=== PATIENT | male | born 1960 | race Caucasian/White ===

== ENCOUNTER 2022-04-20 06:59 | Inpatient (IN) | payer BC, SELFPAY ==
[2022-04-20 07:34] LABS: Hemoglobin 17.5 g/dL (14.0-18.0); Mean Corpuscular HGB CONC 33.8 g/dL (32.0-36.0); Mean Corpuscular Hemoglobin 32.4 pg (27.0-31.0); Mean Corpuscular Volume 95.7 fl (78.0-98.0); Mean Platelet Volume 9.2 fL (7.4-10.4); Platelet Count 214 10x3/uL (130-400); White Blood Cell (WBC) Count 28.6 10x3/uL (4.8-10.8)
[2022-04-20 07:51] LABS: ALT (SGPT) 46 U/L (8-55); AST (SGOT) 31 U/L (5-34); Albumin 3.9 g/dL (3.4-4.8); Alkaline Phosphatase 137 U/L (40-110); Anion Gap 18 mmol/L (10-20); BUN (Urea Nitrogen) 18 mg/dL (8.4-25.7); Bilirubin, Total 1.4 mg/dL (0.2-1.2); Calc. Creatinine Clearance 0 mL/min (70-130); Calcium 10.5 mg/dL (7.8-10.44); Carbon Dioxide 23 mmol/L (23-31); Chloride 99 mmol/L (98-107); Estimated GFR 51; Globulin 4.2 g/dL (2.4-3.5); Glucose 164 mg/dL (80-115); Potassium 4.4 mmol/L (3.5-5.1); Protein, Total 8.1 g/dL (5.8-8.1); Sodium 136 mmol/L (136-145)
[2022-04-20 08:06] LABS: Band 13 % (5-11); Lymphocytes 1 % (21-51); MDiff Complete? YES; Monocytes 4 % (0-10); Neutrophil 80 % (42-75); RBC Morphology Normal; Reactive Lymphocytes 2 % (0-10)
[2022-04-20] MEDS ORDERED: Pantoprazole 40 MG VIAL ONE (08:25)
[2022-04-20 08:41] LABS: INR-International Normal Ratio 1.4
[2022-04-20 08:42] LABS: Bacteria/HPF 4+ HPF (None Seen); Bilirubin Negative (Negative); Blood, Urine 3+ (Negative); Clarity Extra Turbid (Clear); Glucose, Urine (Dipstick) Normal (Negative); Ketone, Urine Trace mg/dL (Negative); Leukocyte 500 Leu/uL (Negative); Nitrite Negative (Negative); Protein, Urine (Dipstick) 50 mg/dL (Neg-Trace); RBC/HPF Greater than 50 HPF (0-3); Specific Gravity, Urine 1.016 (1.002-1.036); Squamous Epithelial 0-3 HPF (0-3); Urobilinogen Normal mg/dL (Less than 2)
[2022-04-20 08:45] LABS: WBC/HPF 21-50 HPF (0-3)
[2022-04-20] MEDS ORDERED: cefTRIAXone\\ROCEPHIN 2 GM VIAL ONE (09:03)
[2022-04-20] MEDS ORDERED: Ondansetron PF 4 MG/2 ML Vial ONE (09:03)
[2022-04-20] MEDS ORDERED: Acetaminophen 325 MG TAB PO PRN (12:05)
[2022-04-20 12:31] LABS: Lactic Acid 2.9 mmol/L (0.5-2.2)
[2022-04-20 14:42] LABS: SARS-CoV-2 NAA Rapid Test Not Detected (NotDetected)
[2022-04-20] MEDS ORDERED: Ondansetron ODT 4 MG TAB PO PRN (15:00)
[2022-04-20] MEDS ORDERED: Ondansetron PF 4 MG/2 ML Vial IVP PRN (15:00)
[2022-04-20] MEDS ORDERED: Iopamidol-370 76% 500 ML 1 ML ONE (15:02)
[2022-04-20] MEDS: Sodium Chloride 0.9% 1,000 ML IV SCH (16:36)
[2022-04-20] MEDS: Atorvastatin Calcium 20 MG TAB PO SCH (21:20)
[2022-04-20] MEDS: Mometasone 100 MCG/PUFF (1 INHALER) INH SCH (22:21)
[2022-04-21 04:29] LABS: #Lymphocytes 1.7 thou/uL (1.20-3.40); #Monocytes 1.6 thou/uL (0.11-0.59); %Basophils 0.1 % (0.0-1.0); %Eosinophils 0.2 % (0.0-10.0); %Lymphocytes 8.2 % (21.0-51.0); %Monocytes 8.1 % (0.0-10.0); %Neutrophils 83.5 % (42.0-75.0); Hemoglobin 15.5 g/dL (14.0-18.0); Mean Corpuscular HGB CONC 32.9 g/dL (32.0-36.0); Mean Corpuscular Hemoglobin 32.8 pg (27.0-31.0); Mean Corpuscular Volume 99.4 fl (78.0-98.0); Mean Platelet Volume 10.2 fL (7.4-10.4); Platelet Count 170 10x3/uL (130-400); RBC Distribution Width 12.2 % (11.5-14.5); Red Blood Cell (RBC) Count 4.74 mill/uL (4.70-6.10); White Blood Cell (WBC) Count 20.4 10x3/uL (4.8-10.8)
[2022-04-21 04:53] LABS: Anion Gap 14 mmol/L (10-20); BUN (Urea Nitrogen) 28 mg/dL (8.4-25.7); Calc. Creatinine Clearance 42 mL/min (70-130); Calcium 9.8 mg/dL (7.8-10.44); Carbon Dioxide 24 mmol/L (23-31); Chloride 105 mmol/L (98-107); Estimated GFR 43; Glucose 108 mg/dL (80-115); Potassium 4.1 mmol/L (3.5-5.1); Sodium 139 mmol/L (136-145)
[2022-04-21] MEDS: Mometasone 100 MCG/PUFF (1 INHALER) INH SCH ×2 (07:30→18:28)
[2022-04-21] MEDS ORDERED: Digoxin 0.5 MG/2 ML AMP SLOW IVP SCH (08:30)
[2022-04-21] MEDS ORDERED: Sodium Chloride 0.9% 500 ML IV SCH (08:30)
[2022-04-21] MEDS: Sodium Chloride 0.9% 1,000 ML IV SCH ×4 (08:38→23:42)
[2022-04-21] MEDS: cefTRIAXone\\ROCEPHIN 1 GM in Sodium Chloride 0.9% 100 ML IVPB SCH (08:39)
[2022-04-21] MEDS ORDERED: Melatonin 3 MG TAB PO PRN (08:45)
[2022-04-21] MEDS ORDERED: Senokot 8.6 MG TAB PO PRN (08:46)
[2022-04-21] MEDS ORDERED: traZODone HCl 150 MG TAB PO SCH (09:00)
[2022-04-21] MEDS: hydrOXYzine Pamoate 25 mg Capsule PO SCH (09:31)
[2022-04-21] MEDS: Metoprolol Tartrate 25 MG TAB PO SCH (09:31)
[2022-04-21] MEDS ORDERED: Sodium Chloride 0.9% 500 ML IVPB SCH (11:00)
[2022-04-21] MEDS: Apixaban 5 MG TAB PO SCH ×2 (15:12→21:15)
[2022-04-21] MEDS: Atorvastatin Calcium 20 MG TAB PO SCH (21:15)
[2022-04-22 04:22] LABS: #Eosinphils 0.2 thou/uL (0.0-0.7); #Lymphocytes 1.8 thou/uL (1.20-3.40); #Monocytes 0.8 thou/uL (0.11-0.59); #Neutrophils 7.3 thou/uL (1.40-6.50); %Basophils 0.1 % (0.0-1.0); %Lymphocytes 18.1 % (21.0-51.0); %Monocytes 8.1 % (0.0-10.0); %Neutrophils 71.8 % (42.0-75.0); Hemoglobin 13.1 g/dL (14.0-18.0); Mean Corpuscular HGB CONC 33.5 g/dL (32.0-36.0); Mean Corpuscular Hemoglobin 33.3 pg (27.0-31.0); Mean Corpuscular Volume 99.3 fl (78.0-98.0); Mean Platelet Volume 9.3 fL (7.4-10.4); Platelet Count 172 10x3/uL (130-400); RBC Distribution Width 11.9 % (11.5-14.5); Red Blood Cell (RBC) Count 3.94 mill/uL (4.70-6.10); White Blood Cell (WBC) Count 10.1 10x3/uL (4.8-10.8)
[2022-04-22 04:58] LABS: ALT (SGPT) 46 U/L (8-55); AST (SGOT) 40 U/L (5-34); Albumin 2.5 g/dL (3.4-4.8); Alkaline Phosphatase 102 U/L (40-110); Anion Gap 12 mmol/L (10-20); BUN (Urea Nitrogen) 23 mg/dL (8.4-25.7); Bilirubin, Total 0.8 mg/dL (0.2-1.2); Calc. Creatinine Clearance 72 mL/min (70-130); Calcium 8.8 mg/dL (7.8-10.44); Carbon Dioxide 23 mmol/L (23-31); Chloride 110 mmol/L (98-107); Estimated GFR 82; Globulin 3.1 g/dL (2.4-3.5); Glucose 87 mg/dL (80-115); Magnesium 1.8 mg/dL (1.6-2.6); Potassium 3.5 mmol/L (3.5-5.1); Protein, Total 5.6 g/dL (5.8-8.1); Sodium 141 mmol/L (136-145)
[2022-04-22] MEDS: Mometasone 100 MCG/PUFF (1 INHALER) INH SCH ×2 (07:00→18:32)
[2022-04-22] MEDS: Apixaban 5 MG TAB PO SCH ×2 (09:14→21:33)
[2022-04-22] MEDS: hydrOXYzine Pamoate 25 mg Capsule PO SCH (09:14)
[2022-04-22] MEDS: Metoprolol Tartrate 25 MG TAB PO SCH (09:14)
[2022-04-22] MEDS: cefTRIAXone\\ROCEPHIN 1 GM in Sodium Chloride 0.9% 100 ML IVPB SCH (09:14)
[2022-04-22] MEDS: Atorvastatin Calcium 20 MG TAB PO SCH (21:32)
[2022-04-22] MEDS: traZODone HCl 150 MG TAB PO SCH (21:33)
[2022-04-23] MEDS ORDERED: Electrolyte Replacement Protocol 1 EACH FS SCH (04:15)
[2022-04-23 05:01] LABS: #Eosinphils 0.3 thou/uL (0.0-0.7); #Lymphocytes 1.9 thou/uL (1.20-3.40); #Monocytes 0.8 thou/uL (0.11-0.59); #Neutrophils 4.7 thou/uL (1.40-6.50); %Basophils 0.6 % (0.0-1.0); %Eosinophils 3.7 % (0.0-10.0); %Lymphocytes 24.4 % (21.0-51.0); %Monocytes 10.5 % (0.0-10.0); %Neutrophils 60.8 % (42.0-75.0); Hemoglobin 12.6 g/dL (14.0-18.0); Mean Corpuscular HGB CONC 34.8 g/dL (32.0-36.0); Mean Corpuscular Hemoglobin 34.3 pg (27.0-31.0); Mean Corpuscular Volume 98.7 fl (78.0-98.0); Mean Platelet Volume 8.8 fL (7.4-10.4); Platelet Count 176 10x3/uL (130-400); RBC Distribution Width 11.7 % (11.5-14.5); Red Blood Cell (RBC) Count 3.66 mill/uL (4.70-6.10); White Blood Cell (WBC) Count 7.7 10x3/uL (4.8-10.8)
[2022-04-23 05:19] LABS: Anion Gap 13 mmol/L (10-20); BUN (Urea Nitrogen) 17 mg/dL (8.4-25.7); Calc. Creatinine Clearance 87 mL/min (70-130); Calcium 8.8 mg/dL (7.8-10.44); Carbon Dioxide 22 mmol/L (23-31); Chloride 106 mmol/L (98-107); Estimated GFR 97; Glucose 83 mg/dL (80-115); Magnesium 1.6 mg/dL (1.6-2.6); Potassium 3.5 mmol/L (3.5-5.1); Sodium 137 mmol/L (136-145)
[2022-04-23] MEDS: Mometasone 100 MCG/PUFF (1 INHALER) INH SCH ×2 (06:44→18:53)
[2022-04-23] MEDS ORDERED: Potassium Chloride 20 MEQ TAB PO SCH (08:00)
[2022-04-23] MEDS ORDERED: Magnesium 2 GM/50 ML(in water) 2 GM in Premix Bag 1 BAG IVPB SCH (08:00)
[2022-04-23] MEDS: Apixaban 5 MG TAB PO SCH ×2 (08:08→20:50)
[2022-04-23] MEDS: hydrOXYzine Pamoate 25 mg Capsule PO SCH (08:09)
[2022-04-23] MEDS: cefTRIAXone\\ROCEPHIN 1 GM in Sodium Chloride 0.9% 100 ML IVPB SCH (08:09)
[2022-04-23] MEDS: Metoprolol Tartrate 25 MG TAB PO SCH (08:10)
[2022-04-23] MEDS: Atorvastatin Calcium 20 MG TAB PO SCH (20:49)
[2022-04-23] MEDS: traZODone HCl 150 MG TAB PO SCH (20:50)
[2022-04-24 04:31] LABS: #Eosinphils 0.3 thou/uL (0.0-0.7); #Lymphocytes 1.7 thou/uL (1.20-3.40); #Monocytes 0.8 thou/uL (0.11-0.59); #Neutrophils 4.8 thou/uL (1.40-6.50); %Lymphocytes 22.7 % (21.0-51.0); %Monocytes 10.4 % (0.0-10.0); %Neutrophils 62.9 % (42.0-75.0); Hemoglobin 13.7 g/dL (14.0-18.0); Mean Corpuscular HGB CONC 33.6 g/dL (32.0-36.0); Mean Corpuscular Hemoglobin 32.6 pg (27.0-31.0); Mean Corpuscular Volume 96.8 fl (78.0-98.0); Mean Platelet Volume 8.6 fL (7.4-10.4); Platelet Count 191 10x3/uL (130-400); RBC Distribution Width 11.8 % (11.5-14.5); White Blood Cell (WBC) Count 7.6 10x3/uL (4.8-10.8)
[2022-04-24 04:51] LABS: Anion Gap 12 mmol/L (10-20); BUN (Urea Nitrogen) 13 mg/dL (8.4-25.7); Calc. Creatinine Clearance 90 mL/min (70-130); Calcium 8.7 mg/dL (7.8-10.44); Carbon Dioxide 24 mmol/L (23-31); Chloride 105 mmol/L (98-107); Estimated GFR 98; Glucose 86 mg/dL (80-115); Magnesium 1.7 mg/dL (1.6-2.6); Potassium 3.9 mmol/L (3.5-5.1); Sodium 137 mmol/L (136-145)
[2022-04-24] MEDS: Mometasone 100 MCG/PUFF (1 INHALER) INH SCH ×2 (07:15→18:54)
[2022-04-24] MEDS: Metoprolol Tartrate 25 MG TAB PO SCH (09:12)
[2022-04-24] MEDS: hydrOXYzine Pamoate 25 mg Capsule PO SCH (09:12)
[2022-04-24] MEDS: cefTRIAXone\\ROCEPHIN 1 GM in Sodium Chloride 0.9% 100 ML IVPB SCH (09:12)
[2022-04-24] MEDS: Apixaban 5 MG TAB PO SCH ×2 (09:12→20:09)
[2022-04-24] MEDS ORDERED: Magnesium Oxide 400 MG TAB PO SCH (14:30)
[2022-04-24] MEDS ORDERED: Tamsulosin HCl 0.4 MG CAP PO SCH (14:30)
[2022-04-24] MEDS ORDERED: Finasteride 5 MG TAB PO SCH (14:45)
[2022-04-24] MEDS: Atorvastatin Calcium 20 MG TAB PO SCH (20:09)
[2022-04-24] MEDS: traZODone HCl 150 MG TAB PO SCH (20:10)
[2022-04-25] MEDS: Mometasone 100 MCG/PUFF (1 INHALER) INH SCH ×2 (08:00→19:08)
[2022-04-25] MEDS: hydrOXYzine Pamoate 25 mg Capsule PO SCH (09:17)
[2022-04-25] MEDS: Apixaban 5 MG TAB PO SCH ×2 (09:17→22:14)
[2022-04-25] MEDS: Metoprolol Tartrate 25 MG TAB PO SCH (09:17)
[2022-04-25] MEDS: Finasteride 5 MG TAB PO SCH (09:18)
[2022-04-25] MEDS: cefTRIAXone\\ROCEPHIN 1 GM in Sodium Chloride 0.9% 100 ML IVPB SCH (09:19)
[2022-04-25] MEDS ORDERED: Tamsulosin HCl 0.4 MG CAP PO SCH (21:00)
[2022-04-25] MEDS: Atorvastatin Calcium 20 MG TAB PO SCH (22:14)
[2022-04-25] MEDS: traZODone HCl 150 MG TAB PO SCH (22:15)
[2022-04-26] MEDS: Mometasone 100 MCG/PUFF (1 INHALER) INH SCH (07:25)
[2022-04-26] MEDS ORDERED: Cefuroxime 250 MG TAB PO SCH (09:00)
[2022-04-26] MEDS: Apixaban 5 MG TAB PO SCH (09:05)
[2022-04-26] MEDS: Finasteride 5 MG TAB PO SCH (09:05)
[2022-04-26] MEDS: hydrOXYzine Pamoate 25 mg Capsule PO SCH (09:05)
[2022-04-26] MEDS: Metoprolol Tartrate 25 MG TAB PO SCH (09:05)
[2022-04-26 13:31] VITALS: BP 110/85; TEMP 98.6
[2022-04-26 17:29] VITALS: BMI 24.6
== END 2022-04-26 17:46 | disposition home or self-care (01) | DRG 872 ==
LOC: ERS 06:59 → ERHOLD 12:10 → 2NO 19:57
PROVIDERS: ADMIT Internal Medicine; ATTEND Internal Medicine
PROC: 3E03329 Introduction of Other Anti-infective into Peripheral Vein, Percutaneous Approach (ICD-10-PCS; 2022-04-20)
PROC: 0T9B70Z Drainage of Bladder with Drainage Device, Via Natural or Artificial Opening (ICD-10-PCS; principal; 2022-04-25)
DX: A41.9 Sepsis, unspecified organism (principal); N17.9 Acute kidney failure, unspecified; N12 Tubulo-interstitial nephritis, not specified as acute or chronic; E78.5 Hyperlipidemia, unspecified; I48.91 Unspecified atrial fibrillation; I25.10 Atherosclerotic heart disease of native coronary artery without angina pectoris; E86.0 Dehydration; N18.9 Chronic kidney disease, unspecified; N40.1 Benign prostatic hyperplasia with lower urinary tract symptoms; B96.1 Klebsiella pneumoniae [K. pneumoniae] as the cause of diseases classified elsewhere; R33.8 Other retention of urine; I12.9 Hypertensive chronic kidney disease with stage 1 through stage 4 chronic kidney disease, or unspecified chronic kidney disease; Z95.5 Presence of coronary angioplasty implant and graft; Z95.1 Presence of aortocoronary bypass graft; Z79.82 Long term (current) use of aspirin; Z79.899 Other long term (current) drug therapy; I69.398 Other sequelae of cerebral infarction; Z79.01 Long term (current) use of anticoagulants
CPT/HCPCS: 36415; 51701; 71045; 74177; 80048; 80053; 81003; 81015; 83605; 83735; 85025; 85610; 85730; 86850; 86900; 86901; 87040; 87077; 87086; 87149; 87186; 93005; 94760; 96361; 96365; 96375; C9113; J0696; J1160; J2405; J3475; J3490; J7030; J7050; Q0177; Q9967; U0002